=== PATIENT | female | born 1990 | race Caucasian/White ===

== ENCOUNTER 2023-03-11 18:56 | Emergency (ER) | payer OTHER, SELFPAY ==
[2023-03-11 19:04] VITALS: BP 114/68; PULSE 123; RESP 16; TEMP 36.8; O2SAT 100
--- NOTE | 2023-03-11 19:14 | ED.NAVMDI ---
HPI - Nausea/Vomiting/Diarrhea General Chief complaint: Nausea/Vomiting/Diarrhea Stated complaint: Nausea Time Seen by Provider: 03/11/23 19:15 Source: patient, RN notes reviewed and old records reviewed Mode of arrival: ambulatory Limitations: no limitations History of Present Illness HPI Narrative: 32-year-old female presents to [facility] with complaints of nausea vomiting since 3 o'clock today. Patient states that her son was ill yesterday with fever and vomiting but seems better today. P Patient reports that she has triedatient denies any diarrhea or any acute abdominal pain, some crampy sensation to abdomen with emesis. Patient states that she has tried some small sips of water and pedialyte but has not been able to keep fluid down. ptient is and she pumped yesterday when child was sick but is afraid she will get dehydrated and milk supply with decrease. MD elicited complaint: nausea and vomiting Onset (ago): hour(s) (1500 today) Treatment prior to arrival: other (Pedialyte and small sips of water) Related Data Allergies Allergy/AdvReac Type Severity Reaction Status Date / Time No Known Allergies Allergy Verified 03/11/23 19:43 Review of Systems Review of Systems: CONSTITUTIONAL: Denies fever, chills, or sweats. ENT: Denies rhinorrhea, congestion, sore throat, or otalgia. CARDIOVASCULAR: Denies chest pain, palpitations, or edema. RESPIRATORY: Denies cough or dyspnea. GASTROINTESTINAL: Reports no abdominal pain,positive for nausea, vomiting,no diarrhea, some cramping with emesis GENITOURINARY: Denies dysuria or hematuria. SKIN: Denies rash or itching. MUSCULOSKELETAL: Denies back pain, joint pain, or myalgia. NEUROLOGIC: Denies headache, numbness, or weakness. All systems reviewed & are unremarkable except as noted in HPI and below PMFSH Past Medical History Medical History (Updated 03/11/23 @ 20:02 by Stella Grijalva NP) Preeclampsia complicating hypertension Social History Social History (Updated 03/11/23 @ 20:02 by Stella Grijalva NP) Smoking status: Never smoker Alcohol intake: current Alcohol use details: social Substance use type: does not use Living arrangements: with family Gender identity (if verbalized by the patient): Female Comments At time of signature, agree with nursing past medical, surgical, social and family history. There is no relevant family history pertinent to the presenting complaint Exam Narrative: GENERAL: Well-appearing, well-nourished, and in no acute distress. HEAD: Normocephalic, atraumatic. EYES: PERRLA, conjunctivae clear, and EOMI. ENT: Nares clear. Mucous membranes moist. Oropharynx without edema, erythema, or lesions. Tonsils not enlarged and without exudate. NECK: Supple. No lymphadenopathy CHEST: Speaks in full sentences. No respiratory distress. SAO2 100% on room air HEART: Regular rate and rhythm. ABDOMEN: Soft, flat, nondistended. No guarding, rebound tenderness, or rigid. No pulsatilla masses. Bowel sounds present in all four quadrants. No organomegaly. Negative Connor?s sign. No periumbilical tenderness. No Supra public tenderness or distension. Good femoral pulses bilaterally. No hernia noted. No scars or surface trauma. nausea and vomiting since 1500 today. SKIN: Warm, dry, no rash. NEURO:? Alert and oriented x3. PSYCH: Normal mood and affect Course Course Emergency Course: Patient is aware of diagnosis, understands and agrees to treatment plan.? Anticipatory guidance given.? Patient agrees to follow-up as directed and is aware of reasons to seek care at the emergency department. Portions of this record may have been created with voice recognition software Level of Care: Express Care Visit Vital Signs Vital signs: Vital Signs Temperature 36.8 C 03/11/23 19:04 Pulse Rate 123 H 03/11/23 19:04 Respiratory Rate 16 03/11/23 19:04 Blood Pressure 114/68 03/11/23 19:04 Pulse Oximetry 100
[2023-03-11] MEDS: ONDANSETRON HCL ODT 4 MG TABLET SUBLINGUAL (19:24)
--- NOTE | 2023-03-11 20:02 | PC.NURSE ---
1950- pt tolerating ice chips.
== END 2023-03-11 19:58 | disposition home or self-care (01) ==
PROVIDERS: Emergency Provider Registered Nurse
DX: B34.9 Viral infection, unspecified (principal); E11.9 Type 2 diabetes mellitus without complications
CPT/HCPCS: 87804; 99213; A9270; G0463

== ENCOUNTER 2023-09-15 12:37 | Outpatient (CLI) | payer OTHER, SELFPAY ==
--- NOTE | ~2023-09-15 | US_ITS ---
US breast RT complete DATE: 09/15/2023 13:10 INDICATION: Right breast swelling, pain, redness for 3 days. Patient is breast-feeding. TECHNIQUE: Real-time and color-flow imaging of the right breast including all 4 quadrants and subareo lar area COMPARISON: None FINDINGS: There is prominent vascularity associated with prominent ducts with intraluminal echogenici ty in the subareolar area. No suspicious mass or shadowing is evident. IMPRESSION: Probable mastitis; no focal mass or suspicious shadowing is evident Recommendation: Follow-up short-term ultrasound examination after clinical treatment for mastitis Reviewed, dictated and finalized at [facility] Reviewed, dictated and finalized at [facility] IMPRESSION: Probable mastitis; no focal mass or suspicious shadowing is evident Recommendation: Follow-up short-term ultrasound examination after clinical jett tment for mastitis
== END 2023-09-15 12:38 | disposition home or self-care (01) ==
PROVIDERS: Visit Provider Nurse Practitioner
DX: O91.23 Nonpurulent mastitis associated with lactation (principal); Z3A.00 Weeks of gestation of pregnancy not specified
CPT/HCPCS: 76641